=== PATIENT | female | born 1980 | race Two or more races ===

== ENCOUNTER 2020-12-03 08:25 | Day surgery (SDC) | payer OTHER ==
[2020-11-23 13:29] VITALS: BMI 27.6
[2020-12-03] MEDS ORDERED: CIPROFLOXACIN HCL 0.3% OPHTH 2.5ML BOTTLE OS SCH (08:30)
[2020-12-03] MEDS ORDERED: CIPROFLOXACIN HCL 0.3% OPHTH 2.5ML BOTTLE ONE (08:46)
[2020-12-03] MEDS ORDERED: LIDOCAINE HCL/EPINEPHRINE/PF 20 ML VIAL ONE (09:52)
[2020-12-03] MEDS ORDERED: BSS (NA/CA/MG/K) BALANCED SALT SOLUTION OPHTH SOLN 15 ML BOTTLE ONE (09:52)
[2020-12-03] MEDS ORDERED: NEO/POLYMYX B SULF/DEXAMETH OPHTHALMIC 5ML BOTTLE ONE (09:53)
[2020-12-03] MEDS ORDERED: LIDOCAINE HCL 2% JELLY 10 ML CARTRIDGE ONE (09:53)
[2020-12-03] MEDS ORDERED: MIDAZOLAM HCL 2 MG/2 ML SINGLE DOSE VIAL ONE ×2 (10:02→10:47)
[2020-12-03 12:26] VITALS: BP 108/67; PULSE 78; TEMP 98
== END 2020-12-03 12:26 | disposition home or self-care (01) ==
LOC: FASU 08:25
PROVIDERS: ATTEND Ophthalmology
PROC: 08U107Z Supplement of Left Eye with Autologous Tissue Substitute, Open Approach (ICD-10-PCS; principal; 2020-12-03 10:22)
DX: H11.002 Unspecified pterygium of left eye (principal)
CPT/HCPCS: 84703